=== PATIENT | male | born 1955 | race Caucasian/White ===

== ENCOUNTER 2023-03-20 09:21 | Emergency (ER) | payer MEDICARE, OTHER ==
[2023-03-20 09:56] VITALS: BP 151/70; O2SAT 96
[2023-03-20 10:00] LABS: BASOPHILS % (AUTO) 0.5 %; EOSINOPHILS # (AUTO) 0.4 10^3/uL (0.0-0.7); EOSINOPHILS % (AUTO) 5.8 %; HCT - HEMATOCRIT 43.3 % (42.0-52.0); HGB - HEMOGLOBIN 14.8 g/dL (14.0-18.0); LYMPHOCYTES # (AUTO) 2.6 10^3/uL (1.5-3.5); LYMPHOCYTES % (AUTO) 34.4 %; MEAN CORPUSCULAR HEMOGLOBIN 30.6 pg (27.0-31.0); MEAN CORPUSCULAR HGB CONC 34.2 g/dL (32.0-36.0); MEAN CORPUSCULAR VOLUME 89.5 fL (80.0-94.0); MEAN PLATELET VOLUME 9.7 fL (7.4-11.4); MONOCYTES # (AUTO) 0.6 10^3/uL (0.0-1.0); MONOCYTES % (AUTO) 7.5 %; NEUTROPHILS # (AUTO) 3.9 10^3/uL (1.5-6.6); NEUTROPHILS % (AUTO) 51.5 %; PLT - PLATELET COUNT 265 10^3/uL (130-450); RED BLOOD COUNT 4.84 10^6/uL (4.70-6.10); RED CELL DISTRIBUTION WIDTH 12.3 % (12.0-15.0); WHITE BLOOD COUNT 7.6 x10^3/uL (4.8-10.8)
[2023-03-20 10:27] LABS: INR 3.9 (0.8-1.2); PT - PROTHROMBIN TIME 39.7 secs (9.9-12.6)
[2023-03-20] MEDS ORDERED: OXYMETAZOLINE HCL 100 SPRAYS BOTTLE NAS STA (11:00)
[2023-03-20] MEDS ORDERED: TRANEXAMIC ACID 1,000 MG/10 ML VIAL NAS STA (11:00)
--- NOTE | 2023-03-20 11:57 | ED Physician Documentation ---
History of Present Illness - Stated complaint Stated Complaint: NOSE BLEED - Chief complaint Chief Complaint: Heent - History obtained from History obtained from: Patient - Additonal information Additional information: Patient is a 68-year-old male visiting from [place] presenting for evaluation of right-sided nosebleed that started around midnight. He is on warfarin for history of PE. Reports having a small nosebleed on that resolved with pressure. However this 1 has not resolved with pressure. He is visiting family from [place] for the holiday and has been here since Wednesday. He denies URI symptoms. He does usually blow his nose in the morning. He denies dizziness, chest pain, shortness of breath. No nausea or vomiting. Review of Systems Cardiac: denies: Chest pain / pressure Respiratory: denies: Dyspnea GI: denies: Vomiting PD PAST MEDICAL HISTORY - Past Medical History Past Medical History: Yes Respiratory: Other Other Past Medical History: PE - Present Medications Home Medications: Ambulatory Orders Medication Instructions Recorded Confirmed Warfarin [Coumadin] 5 mg PO DAILY 03/20/23 03/20/23 cephALEXin [Keflex] 500 mg PO Q6H 3 Days #12 cap 03/20/23 - Allergies Allergies/Adverse Reactions: Allergies Allergy/AdvReac Type Severity Reaction Status Date / Time No Known Drug Allergies Allergy Verified 03/20/23 09:41 - Social History Does the pt smoke?: Yes Smoking Status: Current every day smoker PD ED PE NORMAL - General General: Alert and oriented X 3, No acute distress, Well developed/nourished - HEENT HEENT: Atraumatic, Moist mucous membranes, Pharynx benign, Other (Right-sided epistaxis, unable to visualize source due to briskness of bleeding) - Neck Neck: Supple, no meningeal sign - Respiratory Respiratory: No respiratory distress - Neuro Neuro: Normal speech Results - Vitals Vitals: Vital Signs - 24 hr 03/20/23 09:30 Temperature 36.5 C Heart Rate 68 Respiratory 18 Rate Blood Pressure 151/70 H O2 Saturation 96 - Labs Labs: Laboratory Tests 03/20/23 03/20/23 09:51 09:51 WBC 7.6 RBC 4.84 Hgb 14.8 Hct 43.3 MCV 89.5 MCH 30.6 MCHC 34.2 RDW 12.3 Plt Count 265 MPV 9.7 Neut # (Auto) 3.9 Lymph # (Auto) 2.6 [place] # (Auto) 0.6 Eos # (Auto) 0.4 Baso # (Auto) 0.0 Absolute Nucleated RBC 0.00 Nucleated RBC % 0.0 PT 39.7 H INR 3.9 H Procedures - Epistaxis - Minor Site: Right, Anterior Preparation: Clots removed, Afrin, Clamp / pressure applied, Other (TXA) Treatment: Anterior rhinorocket Other: Observed - no bleeding, Pt tolerated well, O2 sat WNL, Antibiotics prescribed PD Medical Decision Making - ED course Complexity details: reviewed results, re-evaluated patient, d/w patient, d/w family ED course: Patient is a 68-year-old male presenting for evaluation of right-sided epista xis. He is on Coumadin. Unable to visualize directly where the source of the bleeding is coming from due to the briskness of bleeding. Initially tried nasal clamp alone without any improvement. Then tried Afrin and TXA soaked cotton with pressure for approximately 25 minutes without improvement. I then placed an anterior Rhino Rocket which patient tolerated well and observe the patient for an additional 30 minutes with no signs of ongoing bleeding. CBC was reviewed without any significant abnormalities. INR is elevated at 3.9. Will have patient hold warfarin dose today and tomorrow as his goal is closer to 2-3. Patient understands need to return for Rhino Rocket removal as well as concerning symptoms to return for. He is ambulatory at discharge. 1145 - Patient doing well and sitting up comfortably with cotton soaked TXA and nasal clamp on. Denies feeling any drainage down the back of his throat. Understands we will reassess again in another 15 minutes. 1240 - Rhino Rocket has been placed for approximately 30 minutes with no findings of ongoing bleeding. Patient does not have any bleeding out of the left nose or down the back of his throat. He is tolerating the Rhino Rocket understands that it should be kept in place for 2 days and then needs to return for removal. Departure - Departure Disposition: 01 Home, Self Care Clinical Impression: Anterior epistaxis, Supratherapeutic INR Condition: Stable Instructions: ED Nasal Packing Anterior Removable Prescriptions: cephALEXin [Keflex] 500 mg PO Q6H 3 Days #12 cap Comments: You were treated for a nosebleed on the right nostril. We had to place a packing called a Rhino Rocket into the nose to get the bleeding to stop. This packing needs to stay in place for approximately 48 to 72 hours. You will need to return to an emergency department to have the packing removed as well as for reevaluation. Your warfarin level, INR level, is too high at 3.9. Please do not take your dose of warfarin today or tomorrow. I have given you a syringe to add air to the balloon if it feels like it is becoming too loose or soft. If you develop bleeding again please return to the emergency department. I have sent a prescription for an antibiotic for you to take while the packing is in place to [facility] in [place]. Forms: PCP List Discharge Date/Time: 03/20/23 12:49
[2023-03-20] MEDS ORDERED: BACITRACIN ZINC OINT 1 PACKET TOP STA (12:08)
== END 2023-03-20 12:49 | disposition home or self-care (01) ==
LOC: ED 09:21
DX: R04.0 Epistaxis (principal); R79.1 Abnormal coagulation profile; F17.200 Nicotine dependence, unspecified, uncomplicated; Z79.01 Long term (current) use of anticoagulants; Z86.711 Personal history of pulmonary embolism
CPT/HCPCS: 30901; 36415; 85025; 85610; 99283; A9270

== ENCOUNTER 2023-03-23 08:11 | Emergency (ER) | payer MEDICARE, OTHER ==
[2023-03-23 08:27] VITALS: O2SAT 97
--- NOTE | 2023-03-23 08:41 | ED Physician Documentation ---
History of Present Illness - Stated complaint Stated Complaint: NASAL PACKING REMOVAL - Chief complaint Chief Complaint: Heent - Additonal information Additional information: Patient 68-year-old male presenting to the emergency department for removal of nasal packing. Past medical significant for pulmonary emboli. Currently on Coumadin. Is seen here approximately 3 days ago with persistent right-sided nosebleed requiring Rhino Rocket placement. At that time was also noted to be supratherapeutic with an INR of 3.9. Was given instructions to hold his next dose of Coumadin. Returns today for packing removal. Denies other acute issues. Review of Systems Constitutional: denies: Fever Eyes: denies: Loss of vision Ears: denies: Loss of hearing Nose: reports: Epistaxis Throat: denies: Dental pain / toothache Cardiac: denies: Chest pain / pressure Respiratory: denies: Dyspnea GI: denies: Abdominal Pain : denies: Dysuria PD PAST MEDICAL HISTORY - Past Medical History Past Medical History: Yes Cardiovascular: Deep vein thrombosis Respiratory: Other - Present Medications Home Medications: Ambulatory Orders Medication Instructions Recorded Confirmed Warfarin [Coumadin] 5 mg PO DAILY 03/20/23 03/23/23 - Allergies Allergies/Adverse Reactions: Allergies Allergy/AdvReac Type Severity Reaction Status Date / Time No Known Drug Allergies Allergy Verified 03/20/23 09:41 - Social History Does the pt smoke?: Yes Smoking Status: Current every day smoker Does the pt drink ETOH?: Yes Does the pt have substance abuse?: No PD ED PE NORMAL - Vitals Vital signs reviewed: Yes - General General: Alert and oriented X 3 - HEENT HEENT: Atraumatic, Other (Rhino Rocket in place in right nare. No active signs of bleeding.) - Respiratory Respiratory: No respiratory distress Results - Vitals Vitals: Vital Signs - 24 hr 03/23/23 08:16 Temperature 36.0 C L Heart Rate 60 Respiratory 16 Rate Blood Pressure 153/72 H O2 Saturation 97 Oxygen O2 Source Room air - Labs Labs: Laboratory Tests 03/23/23 08:53 PT 13.9 H INR 1.3 H PD Medical Decision Making - ED course Complexity details: reviewed results, re-evaluated patient, d/w patient ED course: Patient 68-year-old male presenting to the emergency department for nasal packing removal. Seen here approximately 3 days ago at which time received Rhino Rocket to right nare for persistent epistaxis on Coumadin. Was also noted to be supratherapeutic on his INR. Rhino Rocket removed without incident. Monitored for approximately 45 minutes with no recurrent bleeding. I did recheck his INR and he is now subtherapeutic with INR 1.3. This was communicated to him. I will encourage him to continue taking his current prescription of Coumadin and follow-up with his primary care doctor soon as possible for recheck. I do not believe that there is any indication for dose adjustment as he was supratherapeutic on his standard dose recently and did report holding his Coumadin at home as he was instructed during his previous ED visit. Departure - Departure Disposition: 01 Home, Self Care Clinical Impression: Encounter for removal of nasal packing, Subtherapeutic international normalized ratio (INR) Comments: [facility] allowing [facility] Your INR at this time is 1.3. Please continue your Coumadin as prescribed and follow-up with your primary care doctor soon as possible for recheck. If it anytime you have new or worsening symptoms please not hesitate to return. Forms: PCP List
[2023-03-23 09:09] LABS: INR 1.3 (0.8-1.2); PT - PROTHROMBIN TIME 13.9 secs (9.9-12.6)
[2023-03-23 09:35] VITALS: BP 148/72
== END 2023-03-23 09:33 | disposition home or self-care (01) ==
LOC: ED 08:11
DX: Z48.00 Encounter for change or removal of nonsurgical wound dressing (principal); R79.1 Abnormal coagulation profile; F17.200 Nicotine dependence, unspecified, uncomplicated; Z79.01 Long term (current) use of anticoagulants
CPT/HCPCS: 36415; 85610; 99282; 99283